=== PATIENT | female | born 1980 | race Caucasian/White ===

== ENCOUNTER → 2025-02-06 | Outpatient (CLI) | payer OTHER ==
[2025-02-06 15:10] LABS: CHOLESTEROL LEVEL 175.0 MG/DL (<200); CHOLESTEROL RISK RATIO 2.56 (<5); LDL CHOLESTEROL 92.4 MG/DL (<100); NON-HDL-C 106.8 MG/DL; TOTAL 25(OH) VITAMIN D 21.9 NG/ML (20.0-100.0); TRIGLYCERIDES LEVEL 72.0 MG/DL (<150)
[2025-02-06 15:11] LABS: VITAMIN B12 LEVEL 422.0 PG/ML (211-911)
== END ==
LOC: M WUC 08:29
PROVIDERS: ATTEND Physician Assistant
DX: N95.9 Unspecified menopausal and perimenopausal disorder (principal)